=== PATIENT | male | born 1965 | race Caucasian/White ===

== ENCOUNTER 2024-11-12 06:08 | Day surgery (SDC) | payer OTHER, SELFPAY ==
[2024-11-01 13:10] VITALS: BMI 31.4
[2024-11-12] VITALS (8 sets, daily range): BP systolic 130–149; BP diastolic 69–93; BMI 31.4
[2024-11-12] MEDS: TYLENOL 1000 MG PO (06:34)
[2024-11-12] MEDS: NORMOSOL-R/PLASMALYTE-A 1000 IV (06:35)
--- NOTE | 2024-11-12 10:12 | SUR.PHASEI ---
patient in pacu, vss, describes umbilical pain as 5/10 - but refuses meds, sites good, abdominal binder on - teaching to support abdomen with any coughing or sneezing. patient's with current GI virus - patient denies nausea, also advised to
support abdomen with any vomitting.
== END 2024-11-12 11:02 | disposition home or self-care (01) ==
LOC: SDS 06:08
PROVIDERS: ATTENDING PHYSICIAN Surgery; FAMILY PHYSICIAN Family Medicine
DX: K42.9 Umbilical hernia without obstruction or gangrene (principal)
CPT/HCPCS: 49591; 36415; 93005